=== PATIENT | female | born 1995 | race Caucasian/White ===

== ENCOUNTER 2023-12-30 21:30 | Emergency (ER) | payer BC ==
[~2023-12-30] VITALS: Ht 157.5 cm; Wt 68.0 kg
--- OUTSIDE RECORDS SUMMARY | 2023-12-30 21:33 | XMS ---
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 Joe has no Care Guidelines for this patient. Vanita VISIT COUNT (12 MO.) 1 NABILA Flores TOTAL 1 NOTE: Visits indicate total known visits. ED/UCC VISIT TRACKING (12 MO.) 12/30/2023 21:32 NABILA Servin [place] TYPE: Emergency COMPLAINT: - ABDOMINAL PAIN INPATIENT VISIT TRACKING (12 MO.) No inpatient visits to display in this time frame [id number]
[2023-12-30] MEDS ORDERED: SODIUM CHLORIDE 0.9% 1,000 ML IV ONE (21:45)
[2023-12-30] MEDS ORDERED: MORPHINE SULFATE 4 MG/ML VIAL IV ONE (21:45)
[2023-12-30 21:52] LABS: BILIRUBIN, URINE NEGATIVE (negative); BLOOD/HGB, URINE NEGATIVE (Negative); KETONE, URINE NEGATIVE (Negative); LEUK ESTERASE, URINE NEGATIVE (negative); NITRITE, URINE NEGATIVE (negative); PH, URINE 5.5 (5-7)
[2023-12-30 21:52] LABS: BASOPHILS 0.3 % (0-2); EOSINOPHILS 1.4 % (0-6); HEMATOCRIT 39.8 % (35.0-50.0); HEMOGLOBIN 13.6 g/dL (12.0-18.0); MCH 30.5 (27-36); MCHC 34.2 g/dl (30-36); MCV 89.2 fl (81-99); MONOCYTES 8.5 % (0-12); NEUTROPHILS 64.8 % (39-80); PLATELET COUNT 319 K/uL (140-440); RBC 4.46 M/ul (4.3-5.7); RDW 13.8 (10.5-15.0)
[2023-12-30] MEDS ORDERED: ondansetron HCL 4 MG/2 ML VIAL IV ONE (22:00)
[2023-12-30 22:12] LABS: ALBUMIN 3.5 g/dL (3.4-5.0); ALBUMIN/GLOBULIN RATIO 1.03 (1.1-2.4); ANION GAP 14.2 (7-21); BILIRUBIN, TOTAL 0.3 ng/dL (0.2-1.0); BUN/CREATININE RATIO 8.69 (6.0-28.6); CALCIUM 9.2 mg/dL (8.5-10.1); CREATININE, SERUM 0.69 mg/dL (0.55-1.02); POTASSIUM 3.2 mmol/L (3.5-5.1); PROTEIN, TOTAL 6.9 g/dL (6.4-8.2)
[2023-12-30 23:35] VITALS: BP 108/80
== END 2023-12-30 23:35 | disposition home or self-care (01) ==
LOC: ED 21:30
PROVIDERS: Family Medicine
DX: K52.9 Noninfective gastroenteritis and colitis, unspecified (principal); F31.9 Bipolar disorder, unspecified; Z79.899 Other long term (current) drug therapy
CPT/HCPCS: 36415; 74177; 80053; 81003; 83690; 84703; 85025; 96361; 96375; 99284-25; J2270; J2405; J7030; Q9967

== ENCOUNTER 2024-01-05 04:59 | Emergency (ER) | payer BC ==
[~2024-01-05] VITALS: Ht 157.5 cm; Wt 70.0 kg
[~2024-01-05 04:59] MED LIST: ALPRAZOLAM0.5 MG PO; DICYCLOMINE HCL10 MG PO; FAMCICLOVIR500 MG PO; METRONIDAZOLE500 MG PO; OLANZAPINE10 MG PO; ONDANSETRON ODT8 MG PO; SUMATRIPTAN SUC50 MG PO
--- OUTSIDE RECORDS SUMMARY | 2024-01-05 05:00 | XMS ---
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 Joe has no Care Guidelines for this patient. [facility] NOTE: Visits indicate total known visits. ED/UCC VISIT TRACKING (12 MO.) [facility]24 04[facility] COMPLAINT: - ABDOMINAL PAIN 12/30/2023 21:[address] [facility] [facility] [place] TYPE: Emergency COMPLAINT: - ABDOMINAL PAIN DIAGNOSES: - Bipolar disorder, unspecified - Noninfective gastroenteritis and colitis, unspecified - Other emt intermediate (current) drug therapy - Upper abdominal pain, unspecified INPATIENT VISIT TRACKING (12 MO.) No inpatient visits to display in this time frame [id number]
[2024-01-05 05:55] VITALS: BP 119/94
== END 2024-01-05 05:56 | disposition home or self-care (01) ==
LOC: ED 04:59
DX: R10.12 Left upper quadrant pain (principal); F31.9 Bipolar disorder, unspecified; Z79.899 Other long term (current) drug therapy
CPT/HCPCS: 99283

== ENCOUNTER 2024-10-01 14:30 | Emergency (ER) | payer OTHER ==
[~2024-10-01] VITALS: Ht 157.5 cm; Wt 72.0 kg
[2024-10-01] MEDS ORDERED: ACETAMINOPHEN 325 MG TAB PO ONE (19:45)
[2024-10-01] MEDS ORDERED: HYDROmorphone HCL 2 MG TAB PO ONE (21:30)
[2024-10-01] MEDS ORDERED: HYDROCODON-ACE1 EA10 PO (22:18)
[2024-10-01] MEDS ORDERED: HYDROCODONE BIT/ACETAMINOPHEN 5/325 MG 1 TAB HOME.PACK PO PRN (22:30)
[2024-10-01 22:39] VITALS: BP 106/81
== END 2024-10-01 22:43 | disposition home or self-care (01) ==
LOC: ED 14:30
DX: S16.1XXA Strain of muscle, fascia and tendon at neck level, initial encounter (principal); S50.01XA Contusion of right elbow, initial encounter; V49.49XA Driver injured in collision with other motor vehicles in traffic accident, initial encounter
CPT/HCPCS: 70450; 72125; 73080; 84703; 99284-25; A9270

== ENCOUNTER 2024-11-17 22:57 | Emergency (ER) | payer MEDICARE ==
[~2024-11-17] VITALS: Ht 152.4 cm; Wt 72.0 kg
[~2024-11-17 22:57] MED LIST changes: +HYDROCODON-ACE1 EA10 PO
[2024-11-18] MEDS ORDERED: TRAMADOL HCL50 MG PO (00:01)
[2024-11-18] MEDS ORDERED: methylPREDNISolone 4 MG HOME.PACK PO ONE ×2 (00:15→23:45)
[2024-11-18] MEDS ORDERED: TRAMADOL HCL 50 MG HOME.PACK PO ONE ×2 (00:15→23:45)
[2024-11-18 00:28] VITALS: BP 130/93
== END 2024-11-18 00:30 | disposition home or self-care (01) ==
LOC: ED 22:57
DX: M70.31 Other bursitis of elbow, right elbow (principal); Z79.899 Other long term (current) drug therapy
CPT/HCPCS: 73080; 99283; A9270

== ENCOUNTER 2025-04-02 00:12 | Inpatient (IN) | payer OTHER ==
[2025-04-02] VITALS (12 sets, daily range): BP systolic 103–126; BP diastolic 65–93
[~2025-04-02] VITALS: Ht 152.4 cm; Wt 69.6 kg
[~2025-04-02 00:12] MED LIST changes: +TRAMADOL HCL50 MG PO
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
[2025-04-02 01:29] LABS: BASOPHILS 0.4 % (0.1-1.2); EOSINOPHILS 0.8 % (0.7-5.8); LYMPHOCYTES 6.6 % (19.3-51.7); MCH 29.1 PG (25.6-32.2); MCHC 34.0 g/dL (32.2-35.5); MCV 85.5 fL (79.4-94.8); MONOCYTES 6.0 % (4.7-12.5); NEUTROPHILS 85.8 % (34.0-71.1); RBC 4.98 M/uL (3.93-5.22)
[2025-04-02 01:30] LABS: BLOOD/HGB, URINE TRACE-I (Negative); KETONE, URINE NEGATIVE (Negative); LEUK ESTERASE, URINE NEGATIVE (negative); NITRITE, URINE NEGATIVE (negative)
[2025-04-02 01:37] LABS: BACTERIA, URINE NONE SEEN /hpf (negative); CASTS, URINE NONE SEEN \\lpf; CRYSTALS, URINE NONE SEEN (0-1+); EPITHELIAL CELLS, URINE SQUAMOUS 2+ /lpf (0-1+); REFLEX CULTURE, URINE No (No)
[2025-04-02 01:41] LABS: ALT (SGPT) 21.0 U/L (14-59); AST (SGOT) 32.0 U/L (15-37); GLOMERULAR FILTRATION RATE,EST 111.0 mL/min (>60); PROTEIN, TOTAL 7.7 g/dL (6.4-8.2); UREA NITROGEN 5.0 mg/dL (7-18)
[2025-04-02] MEDS ORDERED: LACTATED RINGER'S 1,000 ML IV PRN (01:45)
[2025-04-02] MEDS ORDERED: ALBUTEROL/IPRATROPIUM 3 ML NEB INH ONE (01:45)
[2025-04-02 02:32] LABS: CORONAVIRUS COVID-19 AG NEGATIVE (NEGATIVE)
[2025-04-02 02:35] LABS: LACTIC ACID, BLOOD 1.2 mmol/L (0.4-2.0)
[2025-04-02] MEDS ORDERED: AZITHROMYCIN 500 MG in DEXTROSE 5% 250 ML IV ONE (03:30)
[2025-04-02] MEDS ORDERED: KETOROLAC TROMETHAMINE 30 MG/ML VIAL IV ONE (03:45)
[2025-04-02] MEDS ORDERED: LACTATED RINGER'S 1,000 ML IV ONE (04:00)
[2025-04-02] MEDS ORDERED: LACTATED RINGER'S 1,000 ML IV SCH (04:00)
[2025-04-02] MEDS ORDERED: BUDESONIDE 0.5 MG/2 ML VIAL INH ONE (04:00)
[2025-04-02] MEDS ORDERED: ACETAMINOPHEN 325 MG TAB PO PRN (04:00)
[2025-04-02] MEDS ORDERED: ALBUTEROL SULFATE 0.5% 2.5 MG/0.5 ML VIAL INH ONE (04:00)
[2025-04-02] MEDS ORDERED: ALBUTEROL SULFATE 0.083% 3 ML VIAL INH PRN (04:15)
--- NOTE | 2025-04-02 05:30 | NUR ---
THIS RN WENT TO ER TO RECEIVED REPORT FROM JINGLE WRITER AND RECEIVE pt. THIS RN BROUGHT pt TO THE FLOOR VIA STRETCHER. ASSESSMENT AND VITAL SIGNS DONE. pt ABLE TO WALK TO THE BR. LR BOLUS STARTED AFTER IV ABX FINISHED. pt DENIES ANY OTHER NEEDS AT THIS TIME. CALL LIGHT WITHIN REACH. pt C/O NAUSEA. ANTINAUSEA MEDS ADMINISTERED. FOOD AND DRINK PROVIDED.
--- NOTE | 2025-04-02 06:16 | NUR ---
LEATHA AZEVEDO AND CHRISTINE CARDENAS PROVIDED PER pt REQUEST. NO ADDITIONAL NEEDS, CALL LIGHT IN REACH.
[2025-04-02] MEDS ORDERED: HYDROCODONE/ACETA 5/325 TAB PO PRN (07:30)
--- NOTE | 2025-04-02 07:30 | NUR ---
THIS RN ASSISTED PT TO RESTROOM TO VOID CLEAR YELLOW URINE. PT TOLERATED WELL. PT BACK TO BED WITH CALL LIGHT WITHIN REACH. REPORT RECEIVED FROM GEORGE LINDSEY
[2025-04-02] MEDS ORDERED: ALBUTEROL/IPRATROPIUM 3 ML NEB INH SCH (08:00)
[2025-04-02] MEDS ORDERED: BUDESONIDE 0.5 MG/2 ML VIAL INH SCH ×2 (08:00→20:00)
--- NOTE | 2025-04-02 08:46 | NUR ---
PT SITTING UP IN BED EATING BREAKFAST. NO REQUESTS AT THIS TIME. CALL LIGHT WTIHIN REACH.
[2025-04-02] MEDS ORDERED: AZITHROMYCIN 250 MG TAB PO SCH (09:00)
[2025-04-02] MEDS ORDERED: OLANZapine 10 MG TAB PO SCH (09:00)
[2025-04-02] MEDS ORDERED: predniSONE 20 MG TAB PO SCH (09:00)
[2025-04-02] MEDS ORDERED: ACYCLOVIR 400 MG TAB PO SCH (09:00)
--- NOTE | 2025-04-02 09:00 | NUR ---
INTO SEE PATIENT. PERSONAL HEALTH INFORMATION OBTAINED PATIENT LIVES AT HOME ALONE. 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 DOES NOT HAVE ANY DME. DOES NOT WANT ANYONE TO BE A PERSON OF CONTACT FOR HER AT THIS TIME. DRIVES. DENIES ANY DIFFCULTY PAYING UTLITIES OR OBTAINING FOOD. PATIENT WILL DRIVE HER SELF ONCE MEDICALLY CLEARED FOR DISCHARGE. PATIENT HAS BEEN SEEING DR. GILLIAM BUT IS RESCHEDULED WITH A NEW PCP AT [facility].
--- NOTE | 2025-04-02 09:00 | NUR ---
DISCUSSED ADMISSION ORDER WITH DR. BUSTILLOS IN MORNING MEETING, VERBAL ORDER TO CHANGE TO INPATIENT STATUS
[2025-04-02] MEDS ORDERED: FAMOTIDINE 20 MG TAB PO SCH (09:13)
[2025-04-02] MEDS ORDERED: LORazepam 1 MG TAB PO PRN (09:15)
--- NOTE | 2025-04-02 10:25 | NUR ---
PATIENT IS IN BED AT THIS TIME, SECURITY SYSTEMS INTEGRATOR CHARTED VITALS AND I&O'S, GOT FRESH WATER, ASSISTED PATIENT TO THE REST ROOM, CALL LIGHT WITH IN REACH AND NOTHING ELSE NEEDED AT THIS TIME.
--- NOTE | 2025-04-02 11:13 | NUR ---
PATIENT IN BED AT THIS TIME. SECURITY SYSTEMS INTEGRATOR ASSITED PATIENT TO BATHROOM AND THEN BACK TO BED. PATIENT WANTED BREATHING TREATMENT, RN MARLENE NOTIFIED. CALL LIGHT WITHIN REACH, NO FURTHER NEEDS AT THIS TIME.
[2025-04-02] MEDS ORDERED: LORAZEPAM1 MG PO (11:14)
[2025-04-02] MEDS ORDERED: OLANZAPINE20 MG PO (11:14)
[2025-04-02] MEDS ORDERED: CYCLOBENZAPRINE10 MG PO (11:15)
[2025-04-02] MEDS ORDERED: TRETINOIN TOP (11:15)
[2025-04-02] MEDS ORDERED: DOXYCYCLINE HY100 MG PO (11:16)
[2025-04-02] MEDS ORDERED: VENTOLIN HFA18 GM INH (11:18)
--- NOTE | 2025-04-02 11:45 | NUR ---
PT RESTING IN BED RECEIVING BREATHING TREATMENT, VISITOR IN TO SEE PT. CALL LIGHT CHRISTINAIHIN KRISSY.
[2025-04-02] MEDS ORDERED: PEPCID AC20 MG PO (12:33)
[2025-04-02] MEDS ORDERED: LACTAID3000 UNI1 PO (12:34)
[2025-04-02] MEDS ORDERED: FAMCICLOVIR250 MG PO (12:34)
[2025-04-02] MEDS ORDERED: DICYCLOMINE HCL10 MG PO (12:34)
--- NOTE | 2025-04-02 12:36 | NUR ---
MED REC COMPLETE
--- NOTE | 2025-04-02 13:44 | NUR ---
PT TRANSFERRED TO CCU RM 130. REPORT GIVEN TO DINA LINDSEY. ALL BELONGINGS TRANSFERRED.
--- NOTE | 2025-04-02 13:48 | NUR ---
RECEIVED REPORT FROM MARLENE M/S UNIT AT 1330. PATIENT TRANSFERED TO ROOM 130 CCU AT 1340
--- NOTE | 2025-04-02 13:53 | NUR ---
UR CLINICAL REVIEW: MIAH, MEETS INPT FOR PNEUMONIA PULSE 107-136, REQUIRING OXYGEN TO MAINTAIN SATS >90%, IV ANTIBIOTICS, RT EVAL AND TREAT, RESP UP TO 24. SHELBY LUISMARTIN [facility] INPT 04/02/25 @ 0900 ORDER MATCHES REG AUTH PENDING, WILL SEND CLINICALS. PLAN TO DC TO HOME WHEN MEDICALLY READY DC REVIEW 04/04/2025
--- NOTE | 2025-04-02 14:15 | NUR ---
NORCO PRN ONE TAB ADMINISTERED FOR PAIN 7/10 AT HER HEAD/NECK/BACK, WORSE WITH COUGH BUT DOES NOT IMPROVE AFTER COUGH.
--- NOTE | 2025-04-02 14:41 | NUR ---
PCP DR. GAMBLE
[2025-04-02] MEDS ORDERED: GUAIFENESIN/CODEINE 5 ML UDC PO PRN (14:45)
--- NOTE | 2025-04-02 15:04 | NUR ---
NEW ORDER RECEIVED FOR COUGH MEDICATION, PRN. ADMINISTERED AT THIS TIME. SEE EMAR
--- NOTE | 2025-04-02 15:30 | NUR ---
REPORT RECEIVED FROM DINA LINDSEY AND CARE OF PT ASSUMED. PT IS AWAKE IN BED, HAS VISITOR IN ROOM WHO HAS BROUGHT HER DOG IN FOR A VISIT. PT IS ON 2L/NC WITH SPO2 94%. SLIGHTLY SOB WITH ACTIVITY AND MOVING/TALKING IN BED.
--- NOTE | 2025-04-02 16:53 | NUR ---
SPO2 DOWN TO 85-88%, PT RESTING IN BED, AWAKE, OXYGEN TURNED UP TO 3 THEN 4L PER NASAL CANNULA. HR REMAINS 120'S SINUS RHYTHM.
--- NOTE | 2025-04-02 17:26 | NUR ---
RT IN TO SET UP VAPOTHERM AND IPV. PT SAT UP IN BED TO TRY TO EAT DINNER, ATE A FEW BITES AND THEN SAID SHE DIDNT FEEL LIKE EATING. REQUESTS MORE COUGH MEDICINE, WILL GIVE PER EMAR.
--- NOTE | 2025-04-02 18:24 | NUR ---
PT LYING DOWN IN BED. SPO2 88-89%, VAPOTHERM ON AT 20L/40%, WILL NOTIFY RT.
--- NOTE | 2025-04-02 19:02 | NUR ---
IN UNIT, UPDATED ON PT, IN TO BEDSIDE TO SEE PT.
--- NOTE | 2025-04-02 19:03 | NUR ---
PT STATES SHE CAN NOT TOLERATE VAPOTHERM, INITIALLY SWITCHED TO HIGHFLOW NASAL CANNULA THAT WAS ALREADY SET UP, MD WANTS TO TRY A MASK INSTEAD, PT SWITCHED TO OXYMASK AT 8 L.
--- NOTE | 2025-04-02 19:33 | NUR ---
COUGH MEDICATION GIVEN PER EMAR.
--- NOTE | 2025-04-02 20:00 | NUR ---
PATIENT SITTING IN BED. RT IN ROOM FOR NEB. PATIENT REPORTS ONGOING COUGH AND SOME CHEST DISCOMFORT. PATIENT REQUEST MELATONIN WHICH WAS ORDERED PER NIO. PATIENT CONCERNED ABOUT THE TIMING OF HER HOME MEDS; WILL DISCUSS WITH PHARMACY TOMORROW. PATIENT ALSO IS CONCERNED ABOUT HER IV FLUIDS BECAUSE SHE CANNOT BEND HER ARM WHILE SHE IS COUGHING AND DOING HER NEB TREATMENTS. ATTEMPTS MADE TO KEEP ARM STRAIGHT WHILE SITTING UP.
[2025-04-02] MEDS ORDERED: MELATONIN 3 MG TAB PO PRN (20:30)
--- NOTE | 2025-04-02 20:45 | NUR ---
PATIENT UP TO BATHROOM TO VOID. PATIENT IS COUGHING HARD DURING THIS. HR UP TO 160'S. PATIENT DENIED FEELING LIGHTHEADED OR DIZZY. Sp02 92% ON ROOM AIR WHEN RETURNING TO BED. HR IMPROVED TO 130'S. PATIENT PLACED ON OXYMASK AT 4L. WARM BLANKET PROVIDED.
--- NOTE | 2025-04-02 21:13 | NUR ---
REVIEWED PATIENT'S STATUS WITH MD; VERIFIED IV FLUIDS AND REQUEST PRN MUCINEX. SEE EMAR FOR NEW ORDERS.
[2025-04-02] MEDS ORDERED: guaiFENesin 600 MG TABCR PO PRN (21:15)
--- NOTE | 2025-04-02 22:22 | NUR ---
PATIENT UP TO BEDSIDE COMMODE, VOIDED 400ML, STRONG SEVERE COUGH BEFORE AND AFTER UP TO COMMODE. SHE REPORTS NOT FEELING DIZZY OR OFF BALANCE. HER HEART RATE WITH ACTIVITY INCREASED FROM 120'S TO 130-140'S.
[2025-04-03] VITALS (7 sets, daily range): BP systolic 104–126; BP diastolic 76–96
--- NOTE | 2025-04-03 00:07 | NUR ---
PATIENT REPORTS AGITATION AND IS TALKING ABOUT LEAVING AMA. EDUCATED PATIENT ON NEED FOR OXYGENATION AND PLAN OF CARE. AFTER MUCH DISCUSSION PATIENT DOES PLAN TO STAY FOR NOW BUT IS TIRED AND UNCOMFORTABLE. PRN NORCO PROVIDED. PATIENT TOLERATING VAPOTHERM. VS STABLE.
--- NOTE | 2025-04-03 02:00 | NUR ---
patient up to bathroom, voids 600cc, urine sample collected and sent to lab by Robert LINDSEY. patient denies SOB or dizziness with ambulation. patient heart rate 110-115, and SPO2 90% on room air when back in bed. patient provided with more ice water. Vapotherm placed back on patient. no further needs at this time. call light in reach.
--- NOTE | 2025-04-03 03:03 | NUR ---
PATIENT UP TO BSC TO VOID. PATIENT TOLERATED ACTIVITY WELL. HR 100-110 WITH ACTIVITY. TOLERATES ROOM AIR FOR SHORT PERIODS OF TIME. BACK TO BED. WARM BLANKET PROVIDED. BACK ON VAPOTHERM. CALL LIGHT IN REACH.
--- NOTE | 2025-04-03 05:27 | NUR ---
PATIENT PROVIDED PRN MEDS FOR COUGH AND HEADACHE. PATIENT AGAIN IS TALKING ABOUT LEAVING TODAY AND ASKING ABOUT DC CRITERIA. EXPLAINED TO PATIENT THAT SHE WOULD NEED TO BE OFF OXYGEN BEFORE A SAFE DC COULD HAPPEN. PATIENT IS UNDERSTANDING AND AGREEABLE TO STAYING UNTIL SAFE DC CAN OCCUR. PATIENT PROVIDED FRESH ICE WATER AND BREAKFAST ORDER RECEIVED.
--- NOTE | 2025-04-03 06:14 | NUR ---
PATIENT IS ANXIOUS TO GO HOME AND WANTING TO TRY A ROOM AIR TRAIL. PATIENT OFF VAPOTHERM AT THIS TIME.
[2025-04-03 06:16] LABS: BASOPHILS 0.2 % (0.1-1.2); EOSINOPHILS 0.3 % (0.7-5.8); LYMPHOCYTES 11.8 % (19.3-51.7); MCH 30.1 PG (25.6-32.2); MCHC 34.3 g/dL (32.2-35.5); MCV 87.6 fL (79.4-94.8); MONOCYTES 7.7 % (4.7-12.5); NEUTROPHILS 79.5 % (34.0-71.1); RBC 4.29 M/uL (3.93-5.22)
[2025-04-03 06:37] LABS: ALT (SGPT) 26 U/L (14-59); AST (SGOT) 20 U/L (15-37); GLOMERULAR FILTRATION RATE,EST 123 mL/min (>60); PROTEIN, TOTAL 6.9 g/dL (6.4-8.2); UREA NITROGEN 2 mg/dL (7-18)
--- NOTE | 2025-04-03 07:30 | NUR ---
REPORT RECEIVED FROM AMERICA LINDSEY. PT AWAKE IN BED, RT IN ROOM.
[2025-04-03] MEDS ORDERED: ALBUTEROL/IPRATROPIUM 3 ML NEB INH SCH ×2 (08:00)
--- NOTE | 2025-04-03 08:15 | NUR ---
IN TO DO AM ASSESSMENT AND THEN MD IN TO ASSESS PT WELL. PT IS VERY ANXIOUS ABOUT GOING HOME, DISCUSSES WITH MD WHO IS WANTING PT TO STAY IN HOSPITAL. PT AGREES TO STAY WITH POSSIBILITY OF DISCHARGE LATER TODAY OR TOMORROW.
[2025-04-03] MEDS ORDERED: POTASSIUM CHLORIDE 10 MEQ TABCR PO ONE (09:00)
--- NOTE | 2025-04-03 10:30 | NUR ---
PT UP TO SHOWER, TAKEN OFF OXYGEN AND MAINTAINED SATS. SHE WALKED SELF TO SHOWER, DID THE SHOWER HERSELF AND THEN WALKED BACK. SATS WHEN BACK IN ROOM WERE 95-96% ON ROOM AIR. PT STATES SHE IS FEELING MUCH BETTER AFTER THE SHOWER. LUNGS CONT TO HAVE EXW WHEEZES WITH CRACKLES THROUGHOUT.
--- NOTE | 2025-04-03 12:45 | NUR ---
IN TO CHECK ON PT, SHE SITTING IN BED, LUNCH BROUGHT IN TO PT. 91% ON ROOM AIR, SHE DENIES NEEDS AT THIS TIME.
--- NOTE | 2025-04-03 15:00 | NUR ---
PT CONTINUES TO BE AWAKE IN ROOM, SITTING UP IN BED, OCCASIONALLY GETTING UP AND WALKING AROUND THE ROOM. REMAINS ON ROOM AIR, SPOT CHECKS DONE FOR SPO2, 91-93%. PT CALLS FREQUENTLY TO ASK IF SHE IS GOING TO BE ABLE TO GO HOME TODAY, WELL OTHER SMALL REQUESTS.
[2025-04-03 16:36] LABS: HIV 1,2 COMBO ANTIGEN/ANTIBODY Negative (Negative)
[2025-04-03 17:10] LABS: HEPATITIS A ANTIBODY, IGM Negative (Negative); HEPATITIS C AB CIA INTERP Negative (Negative); HEPATITIS C ANTIBODY CIA INDEX 0.03 IV (())
--- NOTE | 2025-04-03 17:30 | NUR ---
MD ON UNIT TO ROUND ON PT AND ASSESS HER, SHE STATES SHE NOW THINKS SHE SHOULD STAY ANOTHER NIGHT. SHE ALSO STATES SHE IS "STIR CRAZY" AND IS REQUESTING TO WALK AROUND, PT OUT TO WALK WITH RT, REMAINS ON ROOM AIR.
--- NOTE | 2025-04-03 18:40 | NUR ---
PT CALLS TO ASK FOR PAIN MEDICATION, 2 TABS NORCO GIVEN.
--- NOTE | 2025-04-03 20:30 | NUR ---
PATIENT PROVIDED EVENING MEDS PER ORDER. PATIENT REPORTS FEELING BETTER TONIGHT. STILL SLIGHTLY SOB WITH ACTIVITY. TOLERATING ROOM AIR. RR 20. VS STABLE. HR 110 AT REST. PATIENT DENIED GI UPSET. TOLERATING ORALS WELL. LUNG SOUNDS ARE COARSE WITH SOME EXPIRTORY WHEEZE IN RUL. PATIENT RECEIVED NEB TREATMENT RECENTLY PER RT. IV SL; SITE WNL. PATIENT DENIED ANY OTHER NEEDS. CALL LIGHT IN REACH. LIGHTS DIMMED.
[2025-04-03] MEDS ORDERED: OLANZapine 10 MG TAB PO SCH (21:00)
--- NOTE | 2025-04-03 21:15 | NUR ---
PATIENT DESAT TO 85% ON ROOM AIR WHILE SLEEPING. 2L NC PLACED. PATIENT'S Sp02 IMPROVED TO 90-92%.
--- NOTE | 2025-04-03 22:10 | NUR ---
PATIENT TOLERATING 2L NC WHILE ASLEEP. APPEARS RESTFUL. LESS COUGHING TONIGHT THAN PREVIOUS SHIFT. HR 100-110 AT REST. CALL LIGHT IN REACH.
--- NOTE | 2025-04-04 00:30 | NUR ---
PATIENT UP TO THE BATHROOM. FRESH ICE WATER PROIVDED. PATIENT ON ROOM AIR AT THIS TIME AND TOLERATING WELL. DENIED FEELING SOB.
--- NOTE | 2025-04-04 02:30 | NUR ---
PATIENT RESTING WITH EYES CLOSED. Sp02 88-91% ON ROOM AIR. ALLOWED PATIENT TO REST. CALL LIGHT IN REACH.
--- NOTE | 2025-04-04 04:00 | NUR ---
PATIENT APPEARS RESTFUL. EYES CLOSED. TOLERATING ROOM AIR.
[2025-04-04 06:00] VITALS: BP 146/97
--- NOTE | 2025-04-04 06:00 | NUR ---
PATIENT WOKE UP COUGHING HARSHLY. DECLINED COUGH MEDS. FRESH WATER PROVIDED. PATIENT REQUEST NEB TREATMENT. RT CALLED.
[2025-04-04 06:10] LABS: BASOPHILS 0.4 % (0.1-1.2); EOSINOPHILS 2.1 % (0.7-5.8); LYMPHOCYTES 22.1 % (19.3-51.7); MCH 29.9 PG (25.6-32.2); MCHC 33.7 g/dL (32.2-35.5); MCV 88.7 fL (79.4-94.8); MONOCYTES 8.5 % (4.7-12.5); NEUTROPHILS 66.4 % (34.0-71.1); RBC 4.35 M/uL (3.93-5.22)
[2025-04-04 06:29] LABS: ALT (SGPT) 20.0 U/L (14-59); AST (SGOT) 17.0 U/L (15-37); GLOMERULAR FILTRATION RATE,EST 126.0 mL/min (>60); PROTEIN, TOTAL 6.8 g/dL (6.4-8.2); UREA NITROGEN 5.0 mg/dL (7-18)
--- NOTE | 2025-04-04 07:40 | NUR ---
REPORT RECEIVED FROM AMERICA LINDSEY. PT IN BED, ON ROOM AIR, SPO2 84-86%.
--- NOTE | 2025-04-04 08:20 | NUR ---
MD IN TO SEE PT AND DISCUSS PLAN, PT VERY EAGER TO GO HOME TODAY, AGREES TO WAIT TO GET DISCHARGE MEDICATIONS FIGURED OUT.
--- NOTE | 2025-04-04 08:32 | NUR ---
PATIENT IS LAYING IN BED. PATIENT WAS PROVIDED WITH A WARM WASHCLOTH. PATIENT STATED SHE WOULD BRUSH HER TEETH LATER. PATIENTS CALL LIGHT IS WITHIN REACH AND NO FURTHER NEEDS AT THIS TIME.
[2025-04-04] MEDS ORDERED: POTASSIUM CHLORIDE 10 MEQ TABCR PO ONE (09:00)
[2025-04-04 09:45] VITALS: BP 11/72
--- NOTE | 2025-04-04 09:55 | NUR ---
MORPHINE 60MG BROUGHT IN TO PT, SHE IS NOW SITTING UP EATING THIRD BREAKFAST. SUCTIONING DONE PER REQUEST. SHE IS ALSO ASKING FOR MEDICATION BETWEEN THE 60MG MORPHINE, STATES SHE TAKES PERCOCET EVERY 2 HOURS AT HOME.
--- NOTE | 2025-04-04 09:57 | NUR ---
PATIENT IS SITTING IN CHAIR. VITAL SIGNS AND I&OS WERE DONE. WATER WATER WAS REFILLED. FRIEND (PAULINE) IS AT THE BEDSIDE. CALL LIGHT IS WITHIN REACH AND NO FURTHER NEEDS AT THIS TIME.
[2025-04-04] MEDS ORDERED: ONDANSETRON 4 MG TAB ODT SL PRN (10:15)
--- NOTE | 2025-04-04 10:20 | NUR ---
PT REPORTS 8/10 "FULL BODY" AND BACK PAIN. PAIN AND NAUSEA MEDICATION PROVIDED PER REQUEST. PT ALSO WANTING TO TAKE SHOWER. PT AMBULATED TO ROOM 126 FOR SHOWER WITH GREEN WARE CASTER. TOWELS AND SHOWER SUPPLIED PROVIDED.
[2025-04-04] MEDS ORDERED: BREZTRI AEROS10.7 GM INH (10:59)
[2025-04-04] MEDS ORDERED: COMBIVENT RESPIM4 GM INH (11:00)
[2025-04-04] MEDS ORDERED: FLUTICASONE-SA1 EAC5 INH (11:03)
[2025-04-04] MEDS ORDERED: PREDNISONE20 MG PO (11:04)
[2025-04-04] MEDS ORDERED: CEFDINIR300 MG PO (11:06)
[2025-04-04] MEDS ORDERED: AZITHROMYCIN250 MG PO (11:07)
--- NOTE | 2025-04-04 11:23 | NUR ---
PATIENT SHOWERED INDEPENDENTLY. PATIENT IS SITTING IN CHAIR, CALL LIGHT IS WITHIN REACH AND NO FURTHER NEEDS AT THIS TIME.
--- NOTE | 2025-04-04 11:45 | NUR ---
PT HAS SHOWERED AND IS NOW UP IN CHAIR WAITING FOR DISCHARGE PAPERWORK AND FOR PHARMACY TO COME IN AND GO OVER HER MEDS.
[2025-04-04 12:02] VITALS: BP 113/79
--- NOTE | 2025-04-04 12:30 | NUR ---
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 ALL BELONGINGS SENT WITH PATIENT. SHE WAS GIVEN WHEELCHAIR RIDE OUT WITH FRIEND TO GO TO PHARMACY AND THEN HOME. IV WAS DC'D WITH CATHETER TIP INTACT.
[2025-04-04 16:32] LABS: CORTISOL,SERUM 1.3 ug/dL (())
[2025-04-04 22:44] LABS: TRIIODOTHYRONINE,FREE FREE T3 2.1 pg/mL (2.5-4.3)
[2025-04-05 20:35] LABS: ADRENOCORTICOTROPIC HORMONE <1.5 pg/mL (7.2-63.3)
--- NOTE | 2025-04-06 16:23 | EKG ---
[facility] [address] [place] [address] Signed Sinus tachycardia Otherwise normal ECG No previous ECGs available Confirmed by Ney Martin MD () on 04/06/2025 4:23:14 PM Electronically Signed By: NEY MARTIN MD 04/06/25 1623 PATIENT NAME: AMERICA DUGGAN Electrocardiogram DATE OF : [birth year] PHYSICIAN: NEY MARTIN MD REPORT #: [id number] REPORT IS CONFIDENTIAL AND NOT TO BE RELEASED WITHOUT AUTHORIZATION
== END 2025-04-04 12:30 | disposition home or self-care (01) | DRG 871 ==
LOC: ED 00:12 → MS 00:14 → CCU 09:00
PROVIDERS: Internal Medicine; ADMIT Internal Medicine; ATTEND Internal Medicine
DX: A41.9 Sepsis, unspecified organism (principal); J18.9 Pneumonia, unspecified organism; J96.91 Respiratory failure, unspecified with hypoxia; J45.901 Unspecified asthma with (acute) exacerbation; F31.9 Bipolar disorder, unspecified; Z86.19 Personal history of other infectious and parasitic diseases
CPT/HCPCS: 36415; 71045; 71260; 80053; 80074; 81001; 82024; 82533; 83605; 83735; 83880; 84439; 84443; 84481; 84484; 84703; 85025; 85379; 86140; 87040; 93005; 93010; 94640; 94667; 94668; 94762; 94799; 96365; 96367; 96375; 96376; 99285-25; A9270; A9270-GY; G0378; J0456; J0696; J1885; J2405; J2919; J7060; J7121; J7512

== ENCOUNTER 2025-05-11 21:35 | Emergency (ER) | payer OTHER ==
[~2025-05-11] VITALS: Ht 152.4 cm; Wt 69.9 kg
[~2025-05-11 21:35] MED LIST changes: +AZITHROMYCIN250 MG PO; +BREZTRI AEROS10.7 GM INH; +CEFDINIR300 MG PO; +COMBIVENT RESPIM4 GM INH; +CYCLOBENZAPRINE10 MG PO; +DOXYCYCLINE HY100 MG PO; +FAMCICLOVIR250 MG PO; +FLUTICASONE-SA1 EAC5 INH; +LACTAID3000 UNI1 PO; +LORAZEPAM1 MG PO; +OLANZAPINE20 MG PO; +PEPCID AC20 MG PO; +PREDNISONE20 MG PO; +TRETINOIN TOP; +VENTOLIN HFA18 GM INH
[2025-05-12 00:59] VITALS: BP 121/96
--- NOTE | 2025-05-12 17:47 | EKG ---
[facility] [address] [facility] [facility] [place], [place] [address] Signed Sinus tachycardia Otherwise normal ECG When compared with ECG of 02-APR-2025 02:28, No significant change was found Confirmed by Anuj Kohli DO ([id number]) on 05/12/2025 5:47:26 PM Electronically Signed By: ANUJ KOHLI DO 05/12/25 1747 PATIENT NAME: CHUY DUGGANLIE TOMÁS Electrocardiogram DATE OF : [birth year] PHYSICIAN: ANUJ KOHLI DO REPORT #: [id number] REPORT IS CONFIDENTIAL AND NOT TO BE RELEASED WITHOUT AUTHORIZATION
== END 2025-05-12 01:00 | disposition home or self-care (01) ==
LOC: ED 21:35
DX: R00.0 Tachycardia, unspecified (principal); Z79.899 Other long term (current) drug therapy; Z79.51 Long term (current) use of inhaled steroids
CPT/HCPCS: 93005; 93010; 93246; 99284